=== PATIENT | female | born 1950 | race Two or more races ===

== ENCOUNTER 2022-05-08 10:35 | Emergency (ER) | payer OTHER ==
[~2022-05-08] VITALS: Ht 175.3 cm; Wt 71.0 kg
[2022-05-08 11:28] LABS: Basophils # (auto) 0 10 ^3/uL (0-0.2); Eosinophils # (auto) 0.1 10 ^3/uL (0-0.8); Eosinophils % (auto) 1.5 % (0.0-7.0); Hematocrit 44.2 % (36.0-46.0); Hemoglobin 14.7 g/dL (12.2-16.2); Lymphocytes # (auto) 1.1 10 ^3/uL (0.4-5.4); Lymphocytes % (auto) 24.2 % (10.0-50.0); Mean Corpuscular Hgb Conc. 33.3 g/dL (32.0-36.0); Mean Corpuscular Volume 90.1 fL (80.0-100.0); Monocytes # (auto) 0.4 10 ^3/uL (0-1.3); Monocytes % (auto) 9.5 % (0.0-12.0); Neutrophils # (auto) 2.8 10 ^3/uL (1.6-8.6); Neutrophils % (auto) 63.8 % (37.0-80.0); Nucleated Red Blood Cells % 0.1 %; Red Blood Cells 4.91 10^6/uL (4.0-5.20); Red Cell Distribution Width 13.6 % (11.8-14.3); White Blood Cell 4.4 10^3/uL (4.4-10.8)
[2022-05-08 11:44] LABS: Albumin 3.7 g/dL (3.4-5.0); Calcium 9.1 mg/dL (8.5-10.1); Potassium 4.6 mmol/L (3.5-5.1)
[2022-05-08 11:48] LABS: BUN/Creatinine Ratio 15.1; Bilirubin, Total 0.4 mg/dL (0.2-1.0); Total Protein 6.7 g/dL (6.4-8.2)
[2022-05-08] MEDS ORDERED: ALBUTEROL SULF 2.5 MG/0.5ML(0.5%) NEB SOLN HHN ONE (13:00)
[2022-05-08] MEDS ORDERED: IPRATROPIUM BROM 0.5 MG/2.5ML INH SOL HHN ONE (13:00)
[2022-05-08] MEDS ORDERED: methylPREDNISolone SOD SUCC 125 MG/2 ML VL IV ONE (13:00)
[2022-05-08 14:37] LABS: Urine Specific Gravity 1.027 (1.001-1.035)
[2022-05-08 14:38] LABS: Urine Blood Negative /uL (Negative)
[2022-05-08 14:47] LABS: Lactic Acid w/Reflex 3.5 mmol/L (0.4-2.0)
[2022-05-08] MEDS ORDERED: AZIT1POW PO (15:20)
[2022-05-08] MEDS ORDERED: METH4PAK PO (15:20)
[2022-05-08 15:31] VITALS: BP 122/85
== END 2022-05-08 15:32 | disposition home or self-care (01) ==
LOC: ER 10:40
DX: J20.9 Acute bronchitis, unspecified (principal); Z20.822 Contact with and (suspected) exposure to COVID-19; Z88.0 Allergy status to penicillin; Z88.2 Allergy status to sulfonamides; Z90.89 Acquired absence of other organs; Z98.890 Other specified postprocedural states; Z77.22 Contact with and (suspected) exposure to environmental tobacco smoke (acute) (chronic)
CPT/HCPCS: 36415; 71046; 80053; 81003; 83605; 84484; 85025; 87040; 87077; 87186; 87426; 87804; 93005; 94640; 99285; J2930; J7644; 94644

== ENCOUNTER 2022-05-25 19:05 | Observation (INO) | payer OTHER ==
[~2022-05-25] VITALS: Ht 175.3 cm; Wt 72.0 kg
[~2022-05-25 19:05] MED LIST: AZIT1POW PO; METH4PAK PO
[2022-05-25 20:07] LABS: Basophils # (auto) 0.1 10 ^3/uL (0-0.2); Eosinophils # (auto) 0.2 10 ^3/uL (0-0.8); Eosinophils % (auto) 2.8 % (0.0-7.0); Hematocrit 36.9 % (36.0-46.0); Lymphocytes # (auto) 1.2 10 ^3/uL (0.4-5.4); Lymphocytes % (auto) 16.5 % (10.0-50.0); Mean Corpuscular Hemoglobin 31.3 pg (28.0-32.0); Mean Corpuscular Hgb Conc. 35.3 g/dL (32.0-36.0); Mean Corpuscular Volume 88.9 fL (80.0-100.0); Monocytes # (auto) 0.4 10 ^3/uL (0-1.3); Monocytes % (auto) 6.2 % (0.0-12.0); Neutrophils # (auto) 5.3 10 ^3/uL (1.6-8.6); Neutrophils % (auto) 73.5 % (37.0-80.0); Nucleated Red Blood Cells % 0.1 %; Red Blood Cells 4.15 10^6/uL (4.0-5.20); Red Cell Distribution Width 13.8 % (11.8-14.3); White Blood Cell 7.2 10^3/uL (4.4-10.8)
[2022-05-25 20:27] LABS: Albumin 3.7 g/dL (3.4-5.0); Calcium 8.7 mg/dL (8.5-10.1); INR 0.93 (0.9-1.15); Potassium 3.8 mmol/L (3.5-5.1)
[2022-05-25 20:32] LABS: BUN/Creatinine Ratio 18.4; Bilirubin, Total 0.4 mg/dL (0.2-1.0); Total Protein 6.3 g/dL (6.4-8.2)
[2022-05-25] MEDS ORDERED: dilTIAZem 25 MG/5 ML VIAL IV ONE (21:45)
[2022-05-25] MEDS ORDERED: MECLIZINE HCL 25 MG TAB PO ONE (22:00)
[2022-05-25] MEDS ORDERED: SODIUM CHLORIDE 0.9% 1,000 ML IV ONE (22:00)
[2022-05-25] MEDS ORDERED: IBUPROFEN 400 MG TAB PO ONE (22:00)
[2022-05-25] MEDS ORDERED: dilTIAZem HCL 60 MG TAB PO ONE (23:00)
[2022-05-26] MEDS ORDERED: MORPHINE SULFATE INJ 2 MG/ml SYRG IV PRN ×2 (02:00)
[2022-05-26] MEDS ORDERED: NITROGLYCERIN 0.4 MG SL TAB SL PRN (02:00)
[2022-05-26] MEDS ORDERED: ONDANSETRON HCL 4 MG/2 ML VIAL IV PRN (02:00)
[2022-05-26] MEDS ORDERED: MECLIZINE HCL 25 MG TAB PO PRN (02:00)
[2022-05-26] MEDS: ENOXAPARIN SOD 40 MG/0.4 ML SYRINGE SC SCH ×2 (04:17→10:00)
[2022-05-26] MEDS ORDERED: dilTIAZem HCL 60 MG TAB GT SCH (06:00)
[2022-05-26 06:27] LABS: BUN/Creatinine Ratio 13.7; Calcium 8.3 mg/dL (8.5-10.1); Potassium 3.9 mmol/L (3.5-5.1)
[2022-05-26 06:50] LABS: Basophils # (auto) 0 10 ^3/uL (0-0.2); Basophils % (auto) 0.9 % (0.0-2.0); Eosinophils # (auto) 0.2 10 ^3/uL (0-0.8); Eosinophils % (auto) 3.3 % (0.0-7.0); Hematocrit 35.7 % (36.0-46.0); Hemoglobin 12.2 g/dL (12.2-16.2); Lymphocytes # (auto) 1.6 10 ^3/uL (0.4-5.4); Lymphocytes % (auto) 30.3 % (10.0-50.0); Mean Corpuscular Hemoglobin 30.6 pg (28.0-32.0); Mean Corpuscular Hgb Conc. 34.1 g/dL (32.0-36.0); Monocytes # (auto) 0.4 10 ^3/uL (0-1.3); Monocytes % (auto) 8.5 % (0.0-12.0); Red Blood Cells 3.97 10^6/uL (4.0-5.20); Red Cell Distribution Width 14.2 % (11.8-14.3); White Blood Cell 5.2 10^3/uL (4.4-10.8)
[2022-05-26] MEDS ORDERED: MECL25TA18 PO (09:37)
[2022-05-26] MEDS ORDERED: DILT60TA2 PO (09:37)
[2022-05-26] MEDS ORDERED: APIX5TAB OR (09:37)
[2022-05-26 10:45] LABS: Cholesterol 157 mg/dL (< 200); HDL Cholesterol 52 mg/dL (40-59); LDL Cholesterol 108 mg/dL (< 100); Triglycerides 63 mg/dL (< 150)
[2022-05-26 14:00] VITALS: BP 112/69
[2022-05-26] MEDS ORDERED: dilTIAZem HCL 60 MG TAB PO SCH (14:00)
[2022-05-26] MEDS ORDERED: ATORVASTATIN 20 MG TAB PO SCH (22:00)
== END 2022-05-26 15:53 | disposition home or self-care (01) ==
LOC: EDBD 19:05 → ER 19:07 → TELE 05-26 01:58 → UNDOADMIN 05-26 01:58 → TELE 05-26 02:36
PROVIDERS: ADMIT Hospitalist; ATTEND Hospitalist
DX: R42 Dizziness and giddiness (principal); Z20.822 Contact with and (suspected) exposure to COVID-19; I48.20 Chronic atrial fibrillation, unspecified; I49.9 Cardiac arrhythmia, unspecified; G43.909 Migraine, unspecified, not intractable, without status migrainosus; D84.9 Immunodeficiency, unspecified; F17.200 Nicotine dependence, unspecified, uncomplicated; I63.542 Cerebral infarction due to unspecified occlusion or stenosis of left cerebellar artery; Z86.73 Personal history of transient ischemic attack (TIA), and cerebral infarction without residual deficits; Z96.641 Presence of right artificial hip joint; Z90.49 Acquired absence of other specified parts of digestive tract; Z79.899 Other long term (current) drug therapy; Z98.890 Other specified postprocedural states
CPT/HCPCS: 36415; 70450; 70551; 71045; 80048; 80053; 80061; 83735; 83880; 84443; 84484; 85025; 85610; 85730; 87426; 93005; 93306; 93886; 96361; 96372; 96374; 99291; G0378; J1650; J8597